=== PATIENT | female | born 1985 ===

== ENCOUNTER 2021-06-10 04:31 | Day surgery (SDC) | payer OTHER ==
[2021-06-05 14:57] VITALS: BMI 31.8
[2021-06-10] MEDS ORDERED: MIDAZOLAM HCL 2 MG/2 ML SINGLE DOSE VIAL ONE (09:13)
[2021-06-10] MEDS ORDERED: ROCURONIUM BROMIDE 50 MG/5 ML SYRINGE ONE (09:13)
[2021-06-10] MEDS ORDERED: LIDOCAINE HCL/PF 2% SDV 5ML VIAL ONE (09:13)
[2021-06-10] MEDS ORDERED: DEXAMETHASONE SOD PHOSPHATE 4 MG/1 ML VIAL ONE (09:13)
[2021-06-10] MEDS ORDERED: PROPOFOL 20 ML ONE (09:13)
[2021-06-10] MEDS ORDERED: BUPIVACAINE HCL/PF 0.5% (5 MG/ML) 30 ML VIAL IJ ONE ×2 (10:02)
[2021-06-10] MEDS ORDERED: oxyCODONE HCL 5 MG TABLET PO PRN (10:04)
[2021-06-10] MEDS ORDERED: ONDANSETRON 4 MG/2 ML VIAL IVPUSH PRN (10:04)
[2021-06-10] MEDS ORDERED: LACTATED RINGERS SOLUTION 1,000 ML IV SCH (10:15)
[2021-06-10] MEDS ORDERED: GLYCOPYRROLATE 0.2 MG/1 ML VIAL ONE (10:31)
[2021-06-10] MEDS ORDERED: KETOROLAC TROMETHAMINE 30 MG/1 ML VIAL ONE (10:31)
[2021-06-10] MEDS ORDERED: NEOSTIGMINE METHYLSULFATE 0.5 MG/ML - 10 ML MDV ONE (10:31)
[2021-06-10] MEDS ORDERED: oxyCODONE HCL 5 MG TABLET ONE ×2 (12:32→13:05)
[2021-06-10] MEDS: oxyCODONE HCL 5 MG TABLET PO PRN ×2 (12:38→13:39)
[2021-06-10 14:07] VITALS: BP 108/54; PULSE 84; TEMP 97.7
== END 2021-06-10 14:00 | disposition home or self-care (01) ==
LOC: JASU-SURG 04:31
PROVIDERS: ATTEND Student in an Organized Health Care Education/Training Program
PROC: 0UT74ZZ Resection of Bilateral Fallopian Tubes, Percutaneous Endoscopic Approach (ICD-10-PCS; principal; 2021-06-10 09:00)
DX: Z30.2 Encounter for sterilization (principal)
CPT/HCPCS: 81025; 88302-TC; 94760